=== PATIENT | female | born 1990 | race Caucasian/White ===

== ENCOUNTER 2018-10-11 08:57 | Emergency (ER) | payer SELFPAY ==
[~2018-10-11] VITALS: Ht 165.1 cm; Wt 68.0 kg
[2018-10-11 09:18] VITALS: Ht 165.1 cm; Wt 68.0 kg
[2018-10-11 12:41] VITALS: BP 121/60
== END 2018-10-11 12:41 | disposition home or self-care (01) ==
LOC: ED 08:57
DX: J06.9 Acute upper respiratory infection, unspecified (principal); M79.10 Myalgia, unspecified site; R68.83 Chills (without fever)
CPT/HCPCS: 87804

== ENCOUNTER 2019-05-31 18:50 | Emergency (ER) | payer MEDICAID ==
[~2019-05-31] VITALS: Ht 157.5 cm; Wt 69.9 kg
[2019-05-31 19:01] VITALS: Ht 157.5 cm; Wt 69.9 kg
[2019-05-31 19:38] LABS: BASOPHIL % 0.6 % (0-2); PLATELET COUNT 166 x10^3mcL (130-400)
[2019-05-31 19:44] LABS: microscopic required? NO
[2019-05-31 19:54] LABS: CARBON DIOXIDE 29.4 mmol/L (21-32); CHLORIDE SERUM 104 mmol/L (98-107); CREATININE SERUM 0.7 mg/dL (0.6-1.0); GFR1 > 60 mL/min; GLUCOSE SERUM 92 mg/dL (74-106); POTASSIUM SERUM 3.9 mmol/L (3.5-5.1); SODIUM SERUM 141 mmol/L (136-145)
[2019-05-31 19:58] LABS: ALBUMIN 3.7 g/dL (3.4-5.0); ALKALINE PHOSPHATASE 67 U/L (46-116); ALT/SGPT 30 U/L (14-59); AST/SGOT 16 U/L (15-37); BILIRUBIN TOTAL 0.3 mg/dL (0.20-1.00); LIPASE 101 IU/L (73-393); TOTAL PROTEIN, SERUM 7.3 g/dL (6.4-8.2)
[2019-05-31 20:08] LABS: UA SPECIFIC GRAVITY >=1.030 (1.005-1.035); urine erythrocyte NEGATIVE (NEGATIVE)
[2019-05-31 21:23] VITALS: BP 98/61
== END 2019-05-31 21:37 | disposition home or self-care (01) ==
LOC: ED 18:50
PROVIDERS: Emergency Medicine
DX: M79.661 Pain in right lower leg (principal); R07.89 Other chest pain; R22.41 Localized swelling, mass and lump, right lower limb
CPT/HCPCS: 36415; 85378; Q0092

== ENCOUNTER 2019-08-21 19:41 | Emergency (ER) | payer MEDICAID ==
[~2019-08-21] VITALS: Ht 157.5 cm; Wt 70.9 kg
[2019-08-21 19:59] LABS: BASOPHIL % 0.6 % (0-2); PLATELET COUNT 166 x10^3mcL (130-400); RED CELL DISTRIBUTION WIDTH 12.4 % (11.5-14.5)
[2019-08-21 20:10] LABS: CALCIUM 9.3 mg/dL (8.5-10.1); CARBON DIOXIDE 26.5 mmol/L (21-32); CHLORIDE SERUM 103 mmol/L (98-107); CREATININE SERUM 0.8 mg/dL (0.6-1.0); GFR1 > 60 mL/min; GLUCOSE SERUM 99 mg/dL (74-106); POTASSIUM SERUM 3.8 mmol/L (3.5-5.1); SODIUM SERUM 140 mmol/L (136-145)
[2019-08-21 20:21] LABS: ALBUMIN 4.1 g/dL (3.4-5.0); ALKALINE PHOSPHATASE 64 U/L (46-116); ALT/SGPT 27 U/L (14-59); AST/SGOT 12 U/L (15-37); BILIRUBIN TOTAL 0.2 mg/dL (0.20-1.00); TOTAL PROTEIN, SERUM 7.6 g/dL (6.4-8.2)
[2019-08-21 20:55] VITALS: BP 107/57
== END 2019-08-21 20:55 | disposition home or self-care (01) ==
LOC: ED 19:41
PROVIDERS: Emergency Medicine
DX: R07.89 Other chest pain (principal); R06.02 Shortness of breath; M25.512 Pain in left shoulder
CPT/HCPCS: 36415; J1885; Q0092

== ENCOUNTER 2019-11-04 10:22 | Inpatient (IN) | payer MEDICAID ==
[~2019-11-04] VITALS: Ht 165.1 cm; Wt 71.7 kg
[2019-11-04 11:38] LABS: UA SPECIFIC GRAVITY 1.025 (1.005-1.035); microscopic required? YES; urine erythrocyte NEGATIVE (NEGATIVE)
[2019-11-04 11:42] LABS: BASOPHIL % 0.7 % (0-2); PLATELET COUNT 169 x10^3mcL (130-400); RED CELL DISTRIBUTION WIDTH 12.2 % (11.5-14.5)
[2019-11-04 11:58] LABS: CALCIUM 8.8 mg/dL (8.5-10.1); CHLORIDE SERUM 102 mmol/L (98-107); CREATININE SERUM 0.7 mg/dL (0.6-1.0); GFR1 > 60 mL/min; GLUCOSE SERUM 113 mg/dL (74-106); POTASSIUM SERUM 3.7 mmol/L (3.5-5.1); SODIUM SERUM 136 mmol/L (136-145)
[2019-11-04 12:02] LABS: ALBUMIN 3.7 g/dL (3.4-5.0); ALKALINE PHOSPHATASE 50 U/L (46-116); ALT/SGPT 32 U/L (14-59); AST/SGOT 14 U/L (15-37); BILIRUBIN TOTAL 0.31 mg/dL (0.20-1.00); TOTAL PROTEIN, SERUM 6.8 g/dL (6.4-8.2)
[2019-11-04 13:58] LABS: CHOLESTEROL 181 mg/dL (<200); CHOLESTEROL/HDL RATIO 7.5; HDL CHOLESTEROL 24 mg/dL (40-60); LIPASE 144 IU/L (73-393); MAGNESIUM 1.8 mg/dL (1.8-2.4); PHOSPHOROUS 3.3 mg/dL (2.5-4.9); TRIGLYCERIDES 464 mg/dL (<150)
[2019-11-04 15:04] VITALS: BP 120/71
[2019-11-04 15:06] VITALS: Ht 165.1 cm; Wt 71.7 kg
[2019-11-04 18:12] VITALS: BP 111/55
[2019-11-04 21:25] VITALS: BP 101/59
[2019-11-05 05:27] VITALS: BP 97/57
[2019-11-05 06:57] LABS: BASOPHIL % 0.5 % (0-2); PLATELET COUNT 150 x10^3mcL (130-400); RED CELL DISTRIBUTION WIDTH 12.2 % (11.5-14.5)
[2019-11-05 07:27] LABS: CARBON DIOXIDE 25.3 mmol/L (21-32); CHLORIDE SERUM 106 mmol/L (98-107); CREATININE SERUM 0.7 mg/dL (0.6-1.0); GFR1 > 60 mL/min; GLUCOSE SERUM 79 mg/dL (74-106); MAGNESIUM 1.9 mg/dL (1.8-2.4); PHOSPHOROUS 3.4 mg/dL (2.5-4.9); POTASSIUM SERUM 3.5 mmol/L (3.5-5.1); SODIUM SERUM 139 mmol/L (136-145)
[2019-11-05 07:59] VITALS: BP 103/54
[2019-11-05 11:54] VITALS: BP 92/46
[2019-11-05 16:26] VITALS: BP 103/65
[2019-11-05 20:07] VITALS: BP 102/56
[2019-11-06 05:20] VITALS: BP 98/55
[2019-11-06 07:15] LABS: CALCIUM 8.2 mg/dL (8.5-10.1); CHLORIDE SERUM 107 mmol/L (98-107); CREATININE SERUM 0.7 mg/dL (0.6-1.0); GFR1 > 60 mL/min; GLUCOSE SERUM 74 mg/dL (74-106); PHOSPHOROUS 3.4 mg/dL (2.5-4.9); POTASSIUM SERUM 3.5 mmol/L (3.5-5.1); SODIUM SERUM 141 mmol/L (136-145)
[2019-11-06 07:48] LABS: BASOPHIL % 0.5 % (0-2); PLATELET COUNT 181 x10^3mcL (130-400); RED CELL DISTRIBUTION WIDTH 12.8 % (11.5-14.5)
[2019-11-06 08:04] VITALS: BP 92/53
[2019-11-06 13:16] VITALS: BP 102/61
[2019-11-06 16:44] VITALS: BP 106/58
[2019-11-06 20:11] VITALS: BP 116/58
[2019-11-07 05:02] VITALS: BP 101/57
[2019-11-07 05:54] LABS: CALCIUM 8.4 mg/dL (8.5-10.1); CARBON DIOXIDE 25.2 mmol/L (21-32); CHLORIDE SERUM 106 mmol/L (98-107); CREATININE SERUM 0.7 mg/dL (0.6-1.0); GFR1 > 60 mL/min; GLUCOSE SERUM 84 mg/dL (74-106); MAGNESIUM 1.9 mg/dL (1.8-2.4); PHOSPHOROUS 3.8 mg/dL (2.5-4.9); POTASSIUM SERUM 3.4 mmol/L (3.5-5.1); SODIUM SERUM 139 mmol/L (136-145)
[2019-11-07 05:56] LABS: BASOPHIL % 0.7 % (0-2); PLATELET COUNT 160 x10^3mcL (130-400); RED CELL DISTRIBUTION WIDTH 12.6 % (11.5-14.5)
[2019-11-07 07:37] VITALS: BP 97/55
[2019-11-07 11:45] VITALS: BP 103/61
[2019-11-07 14:40] VITALS: BP 105/72
[2019-11-07 16:13] VITALS: BP 103/60
[2019-11-07 19:20] VITALS: BP 109/66
[2019-11-08 04:29] VITALS: BP 98/55
[2019-11-08 07:26] LABS: BASOPHIL % 0.2 % (0-2); PLATELET COUNT 185 x10^3mcL (130-400); RED CELL DISTRIBUTION WIDTH 12.5 % (11.5-14.5)
[2019-11-08 07:32] VITALS: BP 108/68
[2019-11-08 07:50] LABS: CALCIUM 9.3 mg/dL (8.5-10.1); CARBON DIOXIDE 22.4 mmol/L (21-32); CHLORIDE SERUM 104 mmol/L (98-107); CREATININE SERUM 0.6 mg/dL (0.6-1.0); GFR1 > 60 mL/min; GLUCOSE SERUM 90 mg/dL (74-106); POTASSIUM SERUM 3.7 mmol/L (3.5-5.1); SODIUM SERUM 138 mmol/L (136-145)
[2019-11-08 11:49] VITALS: BP 114/60
[2019-11-08 15:46] VITALS: BP 103/59
[2019-11-08 20:10] VITALS: BP 102/58
[2019-11-09 04:45] VITALS: BP 100/44
[2019-11-09 06:40] LABS: BASOPHIL % 0.5 % (0-2); PLATELET COUNT 172 x10^3mcL (130-400); RED CELL DISTRIBUTION WIDTH 12.5 % (11.5-14.5)
[2019-11-09 07:15] LABS: CALCIUM 8.6 mg/dL (8.5-10.1); CARBON DIOXIDE 24.6 mmol/L (21-32); CHLORIDE SERUM 105 mmol/L (98-107); CREATININE SERUM 0.7 mg/dL (0.6-1.0); GFR1 > 60 mL/min; GLUCOSE SERUM 80 mg/dL (74-106); MAGNESIUM 1.8 mg/dL (1.8-2.4); POTASSIUM SERUM 3.2 mmol/L (3.5-5.1); SODIUM SERUM 139 mmol/L (136-145)
[2019-11-09 08:02] VITALS: BP 106/61
[2019-11-09 11:54] VITALS: BP 100/54
[2019-11-09 13:12] VITALS: BP 100/54
== END 2019-11-09 13:55 | disposition home or self-care (01) | DRG 247 ==
LOC: ED 10:22 → MU 13:14
PROVIDERS: Emergency Medicine; Urology; ADMIT Internal Medicine
PROC: 0TF68ZZ Fragmentation in Right Ureter, Via Natural or Artificial Opening Endoscopic (ICD-10-PCS; 2019-11-07)
PROC: 0T768DZ Dilation of Right Ureter with Intraluminal Device, Via Natural or Artificial Opening Endoscopic (ICD-10-PCS; 2019-11-07)
PROC: BT1D1ZZ Fluoroscopy of Right Kidney, Ureter and Bladder using Low Osmolar Contrast (ICD-10-PCS; principal; 2019-11-07 12:30)
DX: K56.609 Unspecified intestinal obstruction, unspecified as to partial versus complete obstruction (principal); N13.30 Unspecified hydronephrosis; D64.9 Anemia, unspecified; K56.7 Ileus, unspecified; E78.1 Pure hyperglyceridemia; N39.0 Urinary tract infection, site not specified; J45.909 Unspecified asthma, uncomplicated; N94.10 Unspecified dyspareunia; N83.201 Unspecified ovarian cyst, right side
CPT/HCPCS: 83880; C1758; C1769; C2625; C9113; G0378; J0696; J0744; J1170; J1885; J2270; J2405; J3010; J7030; Q0092; Q9966; Q9967

== ENCOUNTER 2019-11-13 09:38 | Emergency (ER) | payer MEDICAID ==
[~2019-11-13] VITALS: Ht 154.9 cm; Wt 68.9 kg
[2019-11-13 09:46] VITALS: Ht 154.9 cm; Wt 68.9 kg
[2019-11-13 10:20] LABS: microscopic required? YES; urine erythrocyte 3+ (NEGATIVE)
[2019-11-13 10:52] VITALS: BP 114/73
== END 2019-11-13 10:52 | disposition home or self-care (01) ==
LOC: ED 09:38
PROVIDERS: Emergency Medicine
DX: R30.0 Dysuria (principal); R35.0 Frequency of micturition; Z87.442 Personal history of urinary calculi

== ENCOUNTER 2020-03-08 15:51 | Emergency (ER) | payer MEDICAID ==
[~2020-03-08] VITALS: Ht 157.5 cm; Wt 68.9 kg
[~2020-03-08 15:51] MED LIST: FLO4 PO; LEVAQUIN500 M1 PO
[2020-03-08 16:01] VITALS: Ht 157.5 cm; Wt 68.9 kg
[2020-03-08 17:27] LABS: UA SPECIFIC GRAVITY >=1.030 (1.005-1.035); microscopic required? YES; urine erythrocyte TRACE (NEGATIVE)
[2020-03-08 17:28] LABS: BASOPHIL % 0.5 % (0-2); PLATELET COUNT 152 x10^3mcL (130-400); RED CELL DISTRIBUTION WIDTH 12.2 % (11.5-14.5)
[2020-03-08 17:34] LABS: CALCIUM 9.1 mg/dL (8.5-10.1); CARBON DIOXIDE 23.3 mmol/L (21-32); CHLORIDE SERUM 104 mmol/L (98-107); CREATININE SERUM 0.7 mg/dL (0.6-1.0); GFR1 > 60 mL/min; GLUCOSE SERUM 100 mg/dL (74-106); POTASSIUM SERUM 3.7 mmol/L (3.5-5.1); SODIUM SERUM 138 mmol/L (136-145)
[2020-03-08 17:39] LABS: ALBUMIN 3.5 g/dL (3.4-5.0); ALKALINE PHOSPHATASE 43 U/L (46-116); ALT/SGPT 43 U/L (14-59); AST/SGOT 22 U/L (15-37); BILIRUBIN TOTAL 0.3 mg/dL (0.20-1.00); TOTAL PROTEIN, SERUM 6.9 g/dL (6.4-8.2)
[2020-03-08 21:00] VITALS: BP 105/61
== END 2020-03-08 21:00 | disposition home or self-care (01) ==
LOC: ED 15:51
PROVIDERS: Student in an Organized Health Care Education/Training Program
DX: O34.81 Maternal care for other abnormalities of pelvic organs, first trimester (principal); O23.41 Unspecified infection of urinary tract in pregnancy, first trimester; Z3A.01 Less than 8 weeks gestation of pregnancy; Z87.442 Personal history of urinary calculi
CPT/HCPCS: 87491; 87591; Q0092

== ENCOUNTER 2020-05-17 16:38 | Inpatient (IN) | payer MEDICAID ==
[~2020-05-17] VITALS: Ht 157.5 cm; Wt 65.5 kg
[2020-05-17 17:40] VITALS: Ht 157.5 cm; Wt 65.5 kg
[2020-05-17 19:36] LABS: BASOPHIL % 0.2 % (0-2); PLATELET COUNT 131 x10^3mcL (130-400); RED CELL DISTRIBUTION WIDTH 12.2 % (11.5-14.5)
[2020-05-17 19:41] LABS: microscopic required? YES; urine erythrocyte NEGATIVE (NEGATIVE)
[2020-05-17 19:42] LABS: CALCIUM 8.8 mg/dL (8.5-10.1); CARBON DIOXIDE 25.3 mmol/L (21-32); CHLORIDE SERUM 102 mmol/L (98-107); CREATININE SERUM 0.6 mg/dL (0.6-1.0); GFR1 > 60 mL/min; GLUCOSE SERUM 79 mg/dL (74-106); POTASSIUM SERUM 3.5 mmol/L (3.5-5.1); SODIUM SERUM 136 mmol/L (136-145)
[2020-05-17 19:50] LABS: ALBUMIN 3.4 g/dL (3.4-5.0); ALKALINE PHOSPHATASE 49 U/L (46-116); ALT/SGPT 63 U/L (14-59); AST/SGOT 32 U/L (15-37); BILIRUBIN TOTAL 0.4 mg/dL (0.20-1.00); LIPASE 59 IU/L (73-393); TOTAL PROTEIN, SERUM 6.8 g/dL (6.4-8.2)
[2020-05-18 00:30] LABS: CHOLESTEROL/HDL RATIO 5.1
[2020-05-18 02:46] VITALS: BP 106/55
[2020-05-18 04:49] VITALS: BP 96/52
[2020-05-18 07:48] LABS: CALCIUM 8.2 mg/dL (8.5-10.1); CARBON DIOXIDE 20.8 mmol/L (21-32); CHLORIDE SERUM 106 mmol/L (98-107); CREATININE SERUM 0.5 mg/dL (0.6-1.0); GFR1 > 60 mL/min; GLUCOSE SERUM 73 mg/dL (74-106); MAGNESIUM 1.7 mg/dL (1.8-2.4); PHOSPHOROUS 3.2 mg/dL (2.5-4.9); POTASSIUM SERUM 3.3 mmol/L (3.5-5.1); SODIUM SERUM 137 mmol/L (136-145)
[2020-05-18 08:46] VITALS: BP 90/51
[2020-05-18 12:30] VITALS: BP 93/50
[2020-05-18 13:55] LABS: BASOPHIL % 0.4 % (0-2); RED CELL DISTRIBUTION WIDTH 13.2 % (11.5-14.5)
[2020-05-18 13:56] LABS: PLATELET COUNT 115 x10^3mcL (130-400)
[2020-05-18 16:09] VITALS: BP 97/49
[2020-05-18 21:02] VITALS: BP 97/51
[2020-05-19 05:31] VITALS: BP 97/49
[2020-05-19 07:21] LABS: CALCIUM 8.5 mg/dL (8.5-10.1); CARBON DIOXIDE 22.5 mmol/L (21-32); CHLORIDE SERUM 105 mmol/L (98-107); CREATININE SERUM 0.6 mg/dL (0.6-1.0); GFR1 > 60 mL/min; GLUCOSE SERUM 72 mg/dL (74-106); MAGNESIUM 1.7 mg/dL (1.8-2.4); POTASSIUM SERUM 3.5 mmol/L (3.5-5.1); SODIUM SERUM 136 mmol/L (136-145)
[2020-05-19 07:38] LABS: BASOPHIL % 0.3 % (0-2); RED CELL DISTRIBUTION WIDTH 12.9 % (11.5-14.5)
[2020-05-19 08:14] LABS: PLATELET COUNT 108 x10^3mcL (130-400)
[2020-05-19 08:31] VITALS: BP 99/45
[2020-05-19 13:39] VITALS: BP 99/59
[2020-05-19 18:29] VITALS: BP 102/60
[2020-05-19 20:24] VITALS: BP 98/55
[2020-05-20 06:07] VITALS: BP 99/55
[2020-05-20 06:39] LABS: CALCIUM 8.2 mg/dL (8.5-10.1); CARBON DIOXIDE 26.2 mmol/L (21-32); CHLORIDE SERUM 104 mmol/L (98-107); CREATININE SERUM 0.6 mg/dL (0.6-1.0); GFR1 > 60 mL/min; GLUCOSE SERUM 78 mg/dL (74-106); POTASSIUM SERUM 3.4 mmol/L (3.5-5.1); SODIUM SERUM 137 mmol/L (136-145)
[2020-05-20 06:51] LABS: BASOPHIL % 0.4 % (0-2); RED CELL DISTRIBUTION WIDTH 13.1 % (11.5-14.5)
[2020-05-20 07:41] VITALS: BP 101/42
[2020-05-20 08:49] LABS: PLATELET COUNT 115 x10^3mcL (130-400)
[2020-05-20] MEDS ORDERED: VITAMIN B-650 M1 PO (09:15)
[2020-05-20] MEDS ORDERED: VINATE M1 TAB PO (09:16)
[2020-05-20 10:54] VITALS: BP 122/70
== END 2020-05-20 12:35 | disposition home or self-care (01) | DRG 566 ==
LOC: ED 16:38 → DU 23:01
PROVIDERS: Internal Medicine; Student in an Organized Health Care Education/Training Program; ADMIT Internal Medicine; ATTEND Internal Medicine
DX: O23.02 Infections of kidney in pregnancy, second trimester (principal); U07.1 COVID-19; R65.10 Systemic inflammatory response syndrome (SIRS) of non-infectious origin without acute organ dysfunction; O98.512 Other viral diseases complicating pregnancy, second trimester; O99.282 Endocrine, nutritional and metabolic diseases complicating pregnancy, second trimester; O21.0 Mild hyperemesis gravidarum; Z3A.16 16 weeks gestation of pregnancy
CPT/HCPCS: G0378; J0696; J2405; J2765; J7030; J7050; U0003